=== PATIENT | male | born 1960 | race Caucasian/White ===

== ENCOUNTER 2019-12-10 14:30 | Emergency (ER) | payer OTHER ==
[~2019-12-10] VITALS: Ht 180.3 cm; Wt 75.0 kg
[~2019-12-10 14:30] MED LIST: CARVEDILOL25 MG PO; CYCLOBENZAPRINE10 M2; DICLOFENAC SODI PO; PERCOCET 325 MG1 TA2 PO; ULTRAM 50MG TAB50 MG
[2019-12-10 16:04] VITALS: BP 147/79
== END 2019-12-10 16:15 | disposition short-term general hospital (02) ==
LOC: ED 14:30
DX: S68.113A Complete traumatic metacarpophalangeal amputation of left middle finger, initial encounter (principal); I10 Essential (primary) hypertension; F17.210 Nicotine dependence, cigarettes, uncomplicated; Z90.89 Acquired absence of other organs; W23.0XXA Caught, crushed, jammed, or pinched between moving objects, initial encounter; Y92.009 Unspecified place in unspecified non-institutional (private) residence as the place of occurrence of the external cause
CPT/HCPCS: A4216; J0690; J3010

== ENCOUNTER 2020-03-19 08:30 | Outpatient (RCR) | payer OTHER | END 2020-03-19 09:00 | disposition still patient (30) | LOC: OT 08:30 | DX: S68.119A Complete traumatic metacarpophalangeal amputation of unspecified finger, initial encounter (principal) ==

== ENCOUNTER 2020-05-18 08:30 | Outpatient (RCR) | payer OTHER | END 2020-05-18 09:00 | disposition still patient (30) | LOC: OT 08:30 | DX: D36.12 Benign neoplasm of peripheral nerves and autonomic nervous system, upper limb, including shoulder (principal) ==

== ENCOUNTER 2020-05-21 08:19 | Outpatient (RCR) | payer OTHER | END 2020-05-21 09:00 | disposition still patient (30) | LOC: OT 08:19 | DX: D36.12 Benign neoplasm of peripheral nerves and autonomic nervous system, upper limb, including shoulder (principal) ==